=== PATIENT | female | born 1940 | race Caucasian/White ===

== ENCOUNTER 2018-05-17 06:14 | Inpatient (IN) | payer MEDICARE, BC, SELFPAY ==
[2018-04-30 08:14] VITALS: BMI 30.2
[2018-05-17] VITALS (18 sets, daily range): BP systolic 88–115; BP diastolic 37–69; PULSE 71–93; RESP 13–18; TEMP 36.3–37.1; O2SAT 92–98; BMI 30.2
--- NOTE | 2018-05-17 | DI.RAD.S_ITS ---
PROCEDURE: XR SHOULDER RT MIN 2V INDICATIONS: TOTAL RIGHT SHOULDER TECHNIQUE: Single view of the shoulder were acquired. COMPARISON: DOMINIC Murphy, SHOULDER RT MIN 2VW, 06/02/2016, 4:02 PM. FINDINGS: Bones: Patient is status post right shoulder arthroplasty. A surgical drain is present at the shoulder joint. Soft tissues: No suspicious soft tissue calcifications. Visualized portions of lung are unremarkable. IMPRESSION: Status post right shoulder arthroplasty. Dictated by: Italia Garza M.D. on 05/17/2018 at 11:04 Approved by: Italia Garza M.D. on 05/17/2018 at 11:05
[2018-05-17] MEDS: LACTATED RINGERS 1,000 ML 42 ML IV (06:50)
[2018-05-17] MEDS: VANCOMYCIN 1,000 MG/200 ML FROZ.PIGGY 200 MG IV ×2 (06:55→18:18)
--- NOTE | 2018-05-17 07:36 | PM.PREOP ---
Pre-operative Note Interval Note History & Physical reviewed/Exam performed by Physician: Yes Changes to H&P: No
[2018-05-17] MEDS: fentaNYL 100 MCG/2 ML INJ 50 MCG IV (07:40)
[2018-05-17] MEDS: MIDAZOLAM 2 MG/2 ML VIAL IV (07:40)
[2018-05-17] MEDS: GABAPENTIN 600 MG TABLET PO ×3 (07:47→20:54)
--- NOTE | 2018-05-17 07:51 | SUR.PREOP ---
Block start time [0740] . Monitoring initiated and maintained throughout procedure. Oxygen and medications given per anesthesiologist instructions. Patient remained stable throughout procedure, no adverse reactions noted. Block end time 0745[].
[2018-05-17] MEDS: GENTAMICIN 200 MG in SODIUM CHLORIDE 0.9% 100 ML 105 ML IV (08:00)
--- NOTE | 2018-05-17 08:36 | SUR.OPER ---
Beach chair with Skytron table shoulder positioner. Lower body on padded OR bed. Head in foam padded head cradle, secured with straps. Non-operative arm secured <90 degrees abduction with gel padding. Pillow under knees. Safety belt at thigh. Cloth tape over blanket over lower legs.
[2018-05-17] MEDS: LIDOCAINE 1% W/EPI INJ 20 ML INJ (08:44)
--- NOTE | 2018-05-17 10:11 | P.OP_ITS ---
Operative Date/Time/Diagnoses Date of procedure: 05/17/18 Time of procedure: 08:00 Pre-op diagnosis: Right shoulder end-stage arthritis Post-op diagnosis: same Procedure & Clinicians Procedure: R TSA Same procedure as scheduled: Yes Indications: Right shoulder end-stage arthritis Surgeon: Lenard Vera Optical Lab Technician: Kt Munguia Anesthesia Type: General and Peripheral nerve block Operative Notes Findings: Significant arthritis to the glenohumeral joint. Significant flattening of the humeral head with large osteophytes involving almost the entire head particularly medial and inferiorly. Some fraying to the rotator cuff but no sign of any full-thickness tears. Closure Type: primary Specimen(s): none sent Applied: drain(s) and implant(s) Estimated Blood Loss (mL): 50 Blood products transfused: none Procedure in detail: On date of service, Patient was met in the holding area. The operative site was signed and witnessed by the OR staff. The surgeries once again discussed with the patient and any remaining questions they had were answered fully. Patient was taken back to the operating theater and placed on the operating table in a supine position. Great care was taken to ensure that all bony prominences were properly padded. Patient was then placed into the beach chair position. The head and neck were properly positioned and secured. A timeout was performed verifying patient's name, procedure, and the operative site. The upper extremity was then prepped and draped in the normal sterile fashion. Previously, the bony anatomy and incision were marked out as well as injected with Marcaine with epinephrine. A deltopectoral approach was performed. 10 blade was used to incise the skin and fascial tissue. A deep knife was used to continue sharp dissection until the cephalic vein was visualized. The cephalic vein was dissected free allowing us to expose the deltopectoral interval. This interval was then developed. A Duncan elevator was used to free up the deltoid of any scarring both superficially as well as deeply. The vein and the deltoid were taken laterally while the pectoralis was taken medially. This gave us good visualization of the strap muscles. The clavipectoral fascia was removed and the strap muscles were then retracted medially with the pectoralis. This gave us stabilization of the subscapularis. The circumflex vessels were ligated and the subscapularis was sharply excised off the lesser tuberosity and then tagged. Once the subscapularis was released we're able to dislocate the shoulder. Patient had end-stage arthritic changes to the humeral head as well as the glenoid with large osteophytes anterior inferiorly as well as posteriorly. A Ronger was then used to remove the osteophytes. Next, cutting guide was placed and a saw was used to remove the humeral head. Once the head was removed it was templated. A starting awl was then used to find the canal and then the humerus was reamed and broached. Trial stem was placed and a variety of heads were trialed. A protector placed for the osteotomy was then placed and and we turned our attention back to the subscapularis as well as the glenoid. The subscapularis was freed up and a 360? fashion. The degenerative anterior and inferior capsular tissue was removed. This was followed by removing the degenerative labral tissue from around the glenoid as well as the biceps insertion. This gave us good visualization of the glenoid. Glenoid trials were used until we found the appropriate fit and curvature. Next the center hole was drilled followed by reaming of the glenoid. The wound was copiously irrigated after reaming. Next the pegs were drilled and a trial glenoid was impacted into place. Once we were satisfied with the preparation of the glenoid , the final component was cemented into place. This was followed by impaction. We Return to our attention back to the humerus. The protector plate was removed and heads were trialed once again and so we found the appropriate fit. The trials were removed and bone tunnels were made into the humeral neck. #2 FiberWire were passed through the bone tunnels for eventual subscapularis repair. The final stem and head were impacted into place and the shoulder was reduced. It was taken through range of motion and was felt to be stable in both posterior translation as well as external and internal rotation with abduction. The subscapularis was repaired back to the lesser tuberosity through the bone tunnels. This was then reinforced with soft tissue repair. Part of the rotator interval was then closed. A drain was placed and the rest of the wound was closed in a layered fashion. The shoulder was then cleaned dried and dressed and the patient was taken to the PACU in stable condition. Patient will follow our postoperative protocol for total shoulder arthroplasty. Complications: none Condition: stable Disposition: PACU Plan for aftercare: Patient will follow our postoperative protocol for a total shoulder arthroplasty.
[2018-05-17] MEDS: LACTATED RINGERS 1,000 ML 125 ML IV ×2 (11:00→20:52)
--- NOTE | 2018-05-17 12:31 | PC.NURSE ---
Patient received from PACU to room 221, oriented to room and call light. VSS, 3L NC at 96%, per online journalist unable to wean off at this point not tolerating room air. Patient denies complaints, denies pain or shortness of breath. Aquacel dressing and hemovac drain in place and intact. Able to move fingers, pulse palpable, reports numbness and effective pain management from regional block at this time. Call light placed within reach, bed alarm activated for safety.
--- NOTE | 2018-05-17 15:10 | PT.IIE ---
Current Diagnoses Primary osteoarthritis, right shoulder (05/17/18) Surgery Performed Operation Date: 05/17/18 07:45 Actual Procedures p Right Total Shoulder Arthroplasty(Right) - Lenard Vera MD Surgical History (Last Updated 04/30/18 @ 09:42 by Hilda Loera RN) H/O eye surgery (Acute) H/O hernia repair (Acute) H/O toe surgery (Acute) History of appendectomy (Acute) History of colonoscopy (Acute) History of inguinal hernia repair (Acute) History of laminectomy (Acute) History of lumbar fusion (Acute) History of tonsillectomy (Acute) History of total hip arthroplasty (Acute) History of total shoulder replacement (Acute) History of vaginal hysterectomy (Acute ~2005) S/P right knee arthroscopy (Acute) Status post total shoulder arthroplasty (Acute) Medical History (Last Updated 04/30/18 @ 09:47 by Hilda Loera, RN) Anxiety (Acute) Aortic valve sclerosis (Acute) Aortic valve stenosis (Acute) Arthritis of right shoulder region (Acute) Bilateral sciatica (Acute) Bruises easily (Acute) Cataract fragments in both eyes following surgery (Acute) Cervical spinal stenosis (Acute) Depression (Acute) Femoral fracture (Acute ~2013) Former smoker (Acute) GERD (gastroesophageal reflux disease) (Acute) Hammertoe (Acute ~2005) History of abnormal cervical Pap smear (Acute) History of anemia (Acute ~2003) History of delayed wound healing (Acute ~2013) Hyperlipidemia (Acute) Insomnia (Acute) LBBB (left bundle branch block) (Acute) Migraine headache (Acute) Murmur, cardiac (Acute) Numbness of left foot (Acute) Osteoarthritis (Acute) Postmenopausal (Acute) JUAN (stress urinary incontinence, female) (Acute) Scoliosis (Acute) Ulcer (Acute) Weakness (Acute) Physical Therapy Inpatient Evaluation/Re-Eval M1 PT/OT-IP Prior Functional Status Start: 05/17/18 13:00 Freq: NEEDED Status: Active Protocol: Document 05/17/18 15:10 DLM (Rec: 05/17/18 15:32 DLM [id number]) Medical Review Prior Functional Status Medical History Reviewed Yes Diet/Fluid Consistency Regular Communication WNL Mobility and Gait Independent with cane Activities of Daily Living and IADL's Independent Social History Household Members spouse Living Arrangements House Number of Floors (Floors) One Floor Number of Stairs To Enter/Railing? 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 Employment Status Retired Additional Social History Comment had left total shoulder surgery in past M2 PT-IP Current Condition Start: 05/17/18 13:00 Freq: NEEDED Status: Active Protocol: Document 05/17/18 15:10 DLM (Rec: 05/17/18 15:32 DL [id number]) Physical Therapy Current Condition Current Condition Evaluation Date 05/17/18 Treatment Diagnosis right total shoulder arthroplasty Onset Date 05/17/18 Precautions Shoulder Precautions Sling Other Precautions post-op exercises not listed in the chart at this time, pt reports she was told to do pendulums post-op, requested orders be written for exercises and ROM restrictions Weight Bearing Status Weight Bearing Status Non-Weight Bearing M3 PT-IP Subjective Start: 05/17/18 13:00 Freq: NEEDED Status: Active Protocol: Document 05/17/18 15:10 DLM (Rec: 05/17/18 15:32 DL [id number]) Subjective Physical Therapy Visit Type Type Initial Evaluation Visit Start Time 13:40 Visit Stop Time 14:16 Total Visit Minutes 36 Number of CHEMICAL ETCH OPERATOR Visits 0 Physical Therapy Visit Comments Patient Comments She can not feel her right arm Patient Goals Go home tomorrow, walk in [place] tomorrow Therapy Pain Assessment Pain When Pain Assessed During Mobility Pain Present Pain Present Denied Pain M4 PT-IP Mobility and Gait Start: 05/17/18 13:00 Freq: NEEDED Status: Active Protocol: Document 05/17/18 15:10 DLM (Rec: 05/17/18 15:32 [facility] [id number]) PT-Bed Mobility Assessment Rolling Type of Rolling Roll to Left Level of Assist Standby Assistance Supine to Sit Supine to Sit Standby Assistance Sit to Supine Sit to Supine Standby Assistance Scooting Scooting to Edge of Bed Independent PT-Transfer Assessment Sit to and From Stand Sit to and from Stand Contact Guard Assistance Equipment Transfer Assistive Device None Orthotic/Prosthetic Devices or Brace: Yes Transfers Transfer Destination Toilet Transfer Technique Stand Step Pivot Transfer Ability Level of Assist Minimal Assistance Comments Mobility Comments hand held assist used this visit due to decreased balance and hx of cane use Gait Assessment Gait Gait Assistance Required: Minimum Assistance Distance (Feet) 15 Able to Maintain Weight Bearing Status Yes During Gait Assistive Devices Assistive Device None Orthotic/Prosthetic Devices or Brace: Yes Factors Limiting Gait Function Factors Limiting Gait Function Poor Balance Comments Gait Comments she reports hx of decreased balance since leg sx Vitals in sittin/67 and HR 88 Vitals when back in supine 106 /68 and HR 82 Pt using 1 LPM of oxygen with sats 93%. No light-headedness reported when up. PT-Balance Assessment Sitting Balance and Reactions Static Sitting Balance Ability Normal Dynamic Sitting Balance Ability Normal Standing Balance and Reactions Static Standing Balance Ability Fair Dynamic Standing Balance Ability Fair M5 PT-IP Objective Assessments Start: 05/17/18 13:00 Freq: NEEDED Status: Active Protocol: Document 05/17/18 15:10 DLM (Rec: 05/17/18 15:32 DLM [id number]) Orientation Orientation/Cognition Level of Alertness Alert Orientation Name Age Birthday Month Date Year Day of Week Place Situation Language Function Ability No Deficits Noted Safety Awareness Understands Safety Issues Memory Description No Deficits Noted Gross Range of Motion Upper Extremity ROM Assessment Right Impaired Impairments post-op restrictions, pt moving right hand but reports numbness in UE, pt in sling Lower Extremity ROM Assessment Within Functional Limits Strength Upper Extremity Strength Assessment Right Impaired Shoulder post-op restrictions, no functional use right shoulder at this time Hand moving hand actively at this time Lower Extremity Strength Assessment Within Functional Limits Coordination Assessment Gross Coordination Gross Coordination WNL Sensation Assessment Sensation Gross Sensation Right UE Impaired Sensation Description Numbness Comments Sensation Comments post-op numbness with use of block M6 PT-IP Treatment Start: 05/17/18 13:00 Freq: NEEDED Status: Active Protocol: Document 05/17/18 15:10 DLM (Rec: 05/17/18 15:32 DL [id number]) Physical Therapy Treatment Education Education Provided Precautions Safety M7 PT-IP Assessment and Plan Start: 05/17/18 13:00 Freq: NEEDED Status: Active Protocol: Document 05/17/18 15:10 DLM (Rec: 05/17/18 15:32 DLM [id number]) PT Summary Assessment and Plan Potential Rehabilitation Potential Excellent Status of Condition at Evaluation Evolving Summary Impairments Pain ROM Strength Balance Bed Mobility Transfers Gait Activity Tolerance Goals Bed Mobility Goal Independent Transfer Goal Independent Cane Gait Goal Standby Assistance Cane Gait Distance 150 feet Other Goals up and down 5 steps with one rail and SBA (pt goes backwards at home to keep rail on left side) Days to Meet Goals 2 Frequency of Treatment Frequency Of Treatment Twice a Day Treatment Plan Physical Therapy Treatment Plan Bed Mobility Training Transfer Training Gait Training Therapeutic Exercise Post Op Education Discharge Planning Hot or Cold Pack Other Recommendations and Next Treatment wait for clarification on Focus exercises from surgeon Recommendations To Nursing Amount of Assist Needed 1 Person Assist Discharge Recommendations PT Discharge Recommendations Home with Assistance Outpatient PT
--- NOTE | 2018-05-17 16:41 | PC.NURSE ---
Addendum entered by Elise Cortez R.N. 05/17/18 21:28: Med for discomfort 07/22 at 2100 w/good relief. Dsg CDI. HV intact/patent 15cc. O2 @ 1.5L continues for SpO2 95%. Stable post op course. Call light w/in reach, bed alarm on for pt safety. Continue w/plan of care. Original Note: Pt visiting w/family. Denies any discomfort at this time. Right shoulder aquacell dsg CDI. Arm in sling. Lungs diminished at bases. SpO2 93% 1.5L O2 HV intact/patent. LR infusing into the left hand @ 125cc/hr via pump w/o incidence. Stable post op course. Call light w/in reach, bed alarm on for pt safety.
[2018-05-17] MEDS: DOCUSATE 100 MG CAPSULE PO (20:54)
[2018-05-17] MEDS: OXYCODONE IR 5 MG TABLET PO (21:00)
[2018-05-18 00:35] VITALS: BP 108/62; PULSE 75; RESP 18; TEMP 36.7; O2SAT 97
[2018-05-18] MEDS: OXYCODONE IR 5 MG TABLET PO ×3 (03:05→06:03)
[2018-05-18 03:50] VITALS: BP 103/50; PULSE 69; RESP 16; TEMP 36.5; O2SAT 98
[2018-05-18] MEDS: SODIUM CHLORIDE 0.9% FLUSH 10 ML IV ×2 (06:03→09:35)
[2018-05-18] MEDS: PANTOPRAZOLE 40 MG TABLET PO (06:04)
[2018-05-18 06:42] LABS: Hematocrit 29.5 % (36-46); Mean Corpuscular HGB Conc 33.7 % (30-36); Mean Corpuscular Hemoglobin 30.2 PG (26-34); Mean Corpuscular Volume 89.6 fL (80-100); Platelet Count 235 X10^3/uL (150-400); Red Blood Cell Count 3.29 X10^6/uL (4.0-5.2); Red Cell Distribution Width 14.3 % (11.6-14.8)
[2018-05-18 07:30] VITALS: BP 103/60; PULSE 64; RESP 14; TEMP 36.8; O2SAT 98
--- NOTE | 2018-05-18 07:30 | PM.DS.1 ---
History of Present Illness Date Patient Seen: 05/18/18 Time Patient Seen: 07:39 Chief complaint: right shoulder [id number] Narrative: Patient seen bedside s/p R. TSA POD #1. Patient is doing well, patient is controlled with oral pain medication. She is eating. She denies N/V as well as CP, SOB, or numbness/tingling in operative arm. She does have a little bit of postoperative hypotension but should resolve with a 500 cc bolus and holding her her medications this morning. It is likely secondary to anesthesia. Output in Hemovac drain is minimal. She would like to go home. Discharge Providers Date of admission: 05/17/18 06:14 Primary care physician: Arnulfo Oh MD Consults: 05/17/18 09:55 Consult to Discharge Planning Routine Comment: Consult to Physical Therapy Evaluate & Treat Comment: Physician Instructions: Evaluate and Treat Consult to Respiratory Therapy Evaluate & Treat Comment: Physician Instructions: Evaluate and treat Discharge provider: Shanika Guerra PA-C Discharge Date: 05/18/18 Summary Discharge Diagnosis: Right shoulder osteoarthritis Hospital Course: Patient was admitted to the hospital status post right total shoulder replacement on 05/17/[address] Vera. Patient tolerated the procedure well with no major complication she was transitioned to the acute care floor where she was placed on the standard total shoulder joint replacement pathway protocol. She was seen by PT who recommended that she be discharged home. Patient was stable ready for discharge on 05/18/2018. Status at Discharge Cognitive/behavioral status at discharge: Alert and oriented x4 Functional status at discharge: independent ambulation Overall status at discharge: patient is progressing back to baseline Time Spent with Patient Less than 30 minutes Exam Vital Signs (past 8 hours): - 05/18/18 00:35 05/18/18 03:50 Temperature 98.0 F 97.7 F Pulse Rate 75 69 Respiratory Rate 18 16 Blood Pressure 108/62 103/50 L Pulse Oximetry 97 98 Oxygen Delivery Method Room Air Oxygen Flow Rate 1 Narrative Exam Narrative: Well-developed well-nourished no acute distress. Alert and oriented x3. Dressing on right shoulder is clean dry and intact no signs of erythema or drainage. Mild generalized swelling around the shoulder. Range of motion of the wrist fingers and elbow are intact. She is neurovascularly intact to this upper extremity. Objective Labs Result Diagrams: 05/18/18 05:40 Labs: Laboratory Results - last 24 hr 05/18/18 05:40 WBC 8.0 RBC 3.29 L Hgb 10.0 L Hct 29.5 L MCV 89.6 MCH 30.2 MCHC 33.7 RDW 14.3 Plt Count 235 Discharge Plan Discharge Plan Patient Disposition: Home Discharge comment: d/c after PT and once BP is stable Discharge Med Rec/Prescriptions Prescriptions: New acetaminophen 325 mg Tablet 975 mg PO TID PRN (Reason: Headache) Qty: 0 RF: 0 docusate sodium 100 mg Capsule 100 mg PO BID Qty: 0 RF: 0 oxycodone 5 mg Tablet 5 mg PO Q4HR PRN (Reason: pain) Qty: 40 RF: 0 Continue atorvastatin [Lipitor] 20 MG tablet 20 mg PO QAM Qty: 0 RF: 0 potassium chloride 10 MEQ capsule, extended release 10 meq PO QAM Qty: 0 RF: 0 oxybutynin chloride 5 MG tablet 5 mg PO QAM Qty: 0 RF: 0 gabapentin [Neurontin] 600 MG tablet 600 mg PO TID Qty: 0 RF: 0 citalopram [Celexa] 40 mg Tablet 40 mg PO DAILY RF: 0 chlorthalidone 25 mg Tablet 25 mg PO DAILY RF: 0 lisinopril 30 mg Tablet 30 mg PO DAILY RF: 0 omeprazole 20 mg Capsule,Delayed Release(Dr/Ec) 40 mg PO DAILY RF: 0 Discontinued acetaminophen [Tylenol Extra Strength] 500 MG tablet 2 tab PO TID PRN (Reason: pain) Qty: 0 RF: 0 acetaminophen 325 MG tablet 650 mg PO Q4HP PRN (Reason: Pain) RF: 0 Follow up/Referrals: Lenard Vera MD [Physician] - (Follow up with Shanika Guerra PA-C on 05/31/18 at 3:00pm at the [facility] Arnulfo Oh MD [Primary Care Provider] - (follow up with your primary care provider ) Provider Discharge Instructions Diet: Diet as Tolerated Activity: No lifting operative arm, wear sling at all times. May remove sling for range of motion of wrist, elbow, and pendulum exercises Cold/Heat Therapy: Apply ice 20 minutes at a time to operative site at least hourly while awake Skin/Wound/Dressing Care Report to your healthcare provider any signs of infection, such as:: chills, fever, night sweats, increased pain, unusual drainage and unusual redness Dressing: Keep dressing clean, dry, and intact. May shower with dressing in place. Visit Report/Discharge Packet Instructions: DI for Shoulder Replacement Visit Report Forms: Stroke Signs & Symptoms Discharge Data Primary Care Provider: Arnulfo Oh Attending Provider: Lenard Vera Admit Date/Time: 05/17/18 06:14
[2018-05-18] MEDS: DOCUSATE 100 MG CAPSULE PO (09:33)
[2018-05-18] MEDS: OXYBUTYNIN 5 MG TABLET PO (09:33)
[2018-05-18] MEDS: GABAPENTIN 600 MG TABLET PO (09:33)
[2018-05-18] MEDS: POTASSIUM CHLORIDE 10 MEQ TAB PO (09:34)
[2018-05-18] MEDS: CITALOPRAM 20 MG TABLET 40 MG PO (09:34)
[2018-05-18 11:00] VITALS: BP 99/58; PULSE 74; RESP 14; TEMP 36.9; O2SAT 96
--- NOTE | 2018-05-18 11:15 | PC.NURSE ---
Pt BP 87/40s this morning, PA ordered for pt to have a 500cc bolus on NS. After complete pts BP 100s/50. She has been asymptomatic this whole time and denies any dizziness when getting up from the bed or ambulating. Pt will be discharged today and her hemovac will be taken out. Pt had a total of 20cc of bloody drainage out of drain.
--- NOTE | 2018-05-18 12:07 | PT.IPTN ---
Current Diagnoses Primary osteoarthritis, right shoulder (05/17/18) Surgery Performed Operation Date: 05/17/18 07:45 Actual Procedures p Right Total Shoulder Arthroplasty(Right) - Lenard Vera MD Physical Therapy Treatment Note M2 PT-IP Current Condition Start: 05/17/18 13:00 Freq: NEEDED Status: Active Protocol: Document 05/17/18 15:10 DLM (Rec: 05/17/18 15:32 DLM [id number]) Physical Therapy Current Condition Current Condition Evaluation Date 05/17/18 Treatment Diagnosis right total shoulder arthroplasty Onset Date 05/17/18 Precautions Shoulder Precautions Sling Other Precautions post-op exercises not listed in the chart at this time, pt reports she was told to do pendulums post-op, requested orders be written for exercises and ROM restrictions Weight Bearing Status Weight Bearing Status Non-Weight Bearing M3 PT-IP Subjective Start: 05/17/18 13:00 Freq: NEEDED Status: Active Protocol: Document 05/18/18 11:53 SA (Rec: 05/18/18 12:06 [id number]) Subjective Physical Therapy Visit Type Type Treatment Note Visit Start Time 10:02 Visit Stop Time 10:27 Total Visit Minutes 25 Number of COMPUTER TECHNOLOGY INSTRUCTOR Visits 1 Physical Therapy Visit Comments Patient Comments Pt reports feeling pretty good . Low BP of 89/52 but not symptomatic. Agreeable to get up and walk. Therapy Pain Assessment Pain When Pain Assessed During Mobility Pain Present Pain Present Pain Reported Location R shoulder Intensity 2 Scale Used Numeric (1 - 10) Pain Management Techniques Apply Cold Re-positioning Timing of Activity with Medications M4 PT-IP Mobility and Gait Start: 05/17/18 13:00 Freq: NEEDED Status: Active Protocol: Document 05/18/18 11:53 SA (Rec: 05/18/18 12:06 [id number]) PT-Bed Mobility Assessment Rolling Type of Rolling Roll to Left Level of Assist Standby Assistance Supine to Sit Supine to Sit Standby Assistance Sit to Supine Sit to Supine Standby Assistance Scooting Scooting to Edge of Bed Independent PT-Transfer Assessment Sit to and From Stand Sit to and from Stand Contact Guard Assistance Equipment Transfer Assistive Device None Orthotic/Prosthetic Devices or Brace: Yes Transfers Transfer Destination Bed Chair Transfer Technique Stand Step Pivot Transfer Ability Level of Assist Contact Guard Assistance Comments Mobility Comments Pt declined use of SPC as she usually uss it in RUE and prefered MEDICAL BILLING AND CODING INSTRUCTOR or using IV pole with mobility. Pt states her pain level is low and denies feeling light headed or dizzy. Gait Assessment Gait Gait Assistance Required: Contact Guard Assist Minimum Assistance Distance (Feet) 100 Able to Maintain Weight Bearing Status Yes During Gait Assistive Devices Assistive Device None Gait Belt Orthotic/Prosthetic Devices or Brace: Yes Gait Deviations General Gait Pattern Decreased Feet Clearance Flexed Trunk Factors Limiting Gait Function Factors Limiting Gait Function Decreased Activity Tolerance Decreased Strength Poor Balance Comments Gait Comments Gait training in halls with IV pole and CGA-Min A with cues for safety and pacing. Pt tends to walk quickly and needs cues for slowing down, PLB and overall safety. 02 sats with activity 87-91. Stair Climbing Assessment Comments Stair Climbing Comments Pt able to step up/down single step 5x with Min A/MEDICAL BILLING AND CODING INSTRUCTOR on L side as her will do at home, cues for safety and pacing. PT-Balance Assessment Sitting Balance and Reactions Static Sitting Balance Ability Normal Dynamic Sitting Balance Ability Normal Standing Balance and Reactions Static Standing Balance Ability Fair Dynamic Standing Balance Ability Fair M5 PT-IP Objective Assessments Start: 05/17/18 13:00 Freq: NEEDED Status: Active Protocol: Document 05/17/18 15:10 DLM (Rec: 05/17/18 15:32 DLM [id number]) Orientation Orientation/Cognition Level of Alertness Alert Orientation Name Age Birthday Month Date Year Day of Week Place Situation Language Function Ability No Deficits Noted Safety Awareness Understands Safety Issues Memory Description No Deficits Noted Gross Range of Motion Upper Extremity ROM Assessment Right Impaired Impairments post-op restrictions, pt moving right hand but reports numbness in UE, pt in sling Lower Extremity ROM Assessment Within Functional Limits Strength Upper Extremity Strength Assessment Right Impaired Shoulder post-op restrictions, no functional use right shoulder at this time Hand moving hand actively at this time Lower Extremity Strength Assessment Within Functional Limits Coordination Assessment Gross Coordination Gross Coordination WNL Sensation Assessment Sensation Gross Sensation Right UE Impaired Sensation Description Numbness Comments Sensation Comments post-op numbness with use of block M6 PT-IP Treatment Start: 05/17/18 13:00 Freq: NEEDED Status: Active Protocol: Document 05/18/18 11:53 SA (Rec: 05/18/18 12:06 SA [id number]) Physical Therapy Treatment Exercises Exercises Ankle Pumps Seated Knee Flexion/Extension Education Education Provided Precautions Safety M7 PT-IP Assessment and Plan Start: 05/17/18 13:00 Freq: NEEDED Status: Active Protocol: Document 05/18/18 11:53 SA (Rec: 05/18/18 12:06 SA [id number]) PT Summary Assessment and Plan Summary Assessment Summary Pt to d/c home with as caregiver and OP PT. Pt a bit impulsive and needs cues for safety. Frequency of Treatment Frequency Of Treatment Twice a Day Recommendations To Nursing Amount of Assist Needed 1 Person Assist Discharge Recommendations PT Discharge Recommendations Home with Assistance Outpatient PT
--- NOTE | 2018-05-18 15:27 | CM.IDA ---
Discharge Planning/Care Management CM Discharge Assessment Start: 05/18/18 15:18 Freq: Status: Discharge Protocol: Document 05/18/18 15:18 MAULIK (Rec: 05/18/18 15:26 MAULIK [id number]) Discharge Planning Assessment Assigned Sleeve Fixer RAFAEL Skaggs DPOA/Assigned Designee Name Felix Byrne, spouse Contact Information [phone] Advance Directives? Yes: Directive to physicians on file (dated 07/13/1994) Advance Directives on File Yes History Provided By Patient Prior Living Arrangements House Household Members spouse Type of transporation used prior to Drives own vehicle admit Independent with ADL's Yes: Indp w/cane Is patient alert and oriented? Yes Comment No DC needs. Met w/pt and her spouse at bedside, explained role. Pt eager to leave this morning, therapy team agrees pt will be safe to DC back home w/spouse and outpt PT when ordered. [facility]. Barriers to Discharge No Discharge Plan Home Transportation Arrangement Spouse Referrals Initiated None needed Whiteboard Updated in Patient Room with Yes name and ext. # of Sleeve Fixer Review Status In Process Check-in [id number]
== END 2018-05-18 12:40 | disposition home or self-care (01) | DRG 483 ==
PROVIDERS: Admitting Provider Orthopaedic Surgery; PCP Family Medicine; Visit Provider Orthopaedic Surgery
PROC: 0RQJ0ZZ Repair Right Shoulder Joint, Open Approach (ICD-10-PCS; CPT 23472; principal; 2018-05-17 07:45)
DX: M19.011 Primary osteoarthritis, right shoulder (principal); Z96.612 Presence of left artificial shoulder joint; E78.5 Hyperlipidemia, unspecified; K21.9 Gastro-esophageal reflux disease without esophagitis; F41.9 Anxiety disorder, unspecified; Z87.891 Personal history of nicotine dependence; I10 Essential (primary) hypertension; I44.7 Left bundle-branch block, unspecified; I95.9 Hypotension, unspecified
CPT/HCPCS: 36415; 64415; 73030; 85027; 94760; 97116; 97162; 97530; C1776; J1100; J2250; J2405; J2704; J3010; J3370

== ENCOUNTER → 2020-11-30 09:31 | Outpatient (CLI) | payer MEDICARE, BC, SELFPAY ==
[2018-05-17 11:37] VITALS: BMI 30.2
[2020-11-30 10:29] LABS: COVID19 -Nasal RAPID Negative (Negative)
== END ==
PROVIDERS: PCP Family Medicine; Visit Provider Student in an Organized Health Care Education/Training Program
DX: Z01.812 Encounter for preprocedural laboratory examination (principal); Z20.822 Contact with and (suspected) exposure to COVID-19
CPT/HCPCS: 87635; C9803

== ENCOUNTER 2020-12-02 07:31 | Day surgery (SDC) | payer MEDICARE, BC, SELFPAY ==
[2018-05-17 11:37] VITALS: BMI 30.2
[2020-11-26 07:30] VITALS: BMI 30.2
[2020-12-02] VITALS (14 sets, daily range): BP systolic 105–150; BP diastolic 53–81; PULSE 60–74; RESP 11–16; TEMP 36.1–36.8; O2SAT 89–99; BMI 34.4
--- NOTE | 2020-12-02 06:00 | DI.RAD.S_ITS ---
PROCEDURE: XR KNEE LT 1TO2V INDICATIONS: left TKA TECHNIQUE: 2 view(s) of the knee acquired. COMPARISON: None. FINDINGS: Bones: Patient is status post knee joint arthroplasty. Hardware components are in expected positions. Visualized bony structures are intact. Soft tissues: Overlying postoperative changes are noted. IMPRESSION: Postop changes from left total knee arthroplasty with anatomic left knee alignment. Dictated by: Chapito Daigle M.D. on 12/02/2020 at 11:09 Approved by: Chapito Daigle M.D. on 12/02/2020 at 11:09
[2020-12-02] MEDS: ACETAMINOPHEN 325 MG TABLET 975 MG PO (08:12)
[2020-12-02] MEDS: PREGABALIN 75 MG CAPSULE PO (08:12)
[2020-12-02] MEDS: CELECOXIB 200 MG CAPSULE PO (08:12)
[2020-12-02] MEDS: LACTATED RINGERS 1,000 ML 42 ML IV (08:15)
--- NOTE | 2020-12-02 08:46 | PM.PREOP ---
Pre-operative Note COVID-19 COVID-19 status: Negative Result date/Date tested (Pos, Neg/Pending): 11/30/20 Interval Note History & Physical reviewed/Exam performed by Physician: Yes Changes to H&P: No H&P completed within 30 days and has changed as indicated here:: Plan for L TKA
[2020-12-02] MEDS: TRANEXAMIC ACID 1,000 MG VIAL 2000 MG INJ ×2 (09:10→10:10)
--- NOTE | 2020-12-02 09:23 | SUR.OPER ---
Supine on padded OR bed. Pillow under head, arms secured on padded armboards <90 degree abduction. Safety belt across torso. Non-operative leg secured with tape over blanket over lower leg. Operative leg under control of surgeon with padded foam positioner. Foam padded brace at thigh of operative leg.
[2020-12-02] MEDS: KETOROLAC 30 MG/ML VIAL IV (09:34)
[2020-12-02] MEDS: CEFAZOLIN 1 GM VIAL 2 GM IV ×2 (09:34→17:11)
[2020-12-02] MEDS: MORPHINE 4 MG/ML INJ INJ (09:35)
[2020-12-02] MEDS: SODIUM CHLORIDE IRRIG SOLUTION 250 ML, POVIDONE-IODINE SPONGE STICKS 1 APPLIC IRR (09:35)
[2020-12-02] MEDS: ROPIVACAINE 0.5% PF 5 MG/ML 20ML VIAL 60 ML INJ (09:35)
--- NOTE | 2020-12-02 10:31 | P.OP_ITS ---
Operative Date/Time/Diagnoses Date of procedure: 12/02/20 Time of procedure: 10:31 Pre-op diagnosis: left knee OA Post-op diagnosis: same Procedure & Clinicians Procedure: Left total knee arthroplasty Same procedure as scheduled: Yes Indications: Left knee osteoarthritis resistant to further conservative measures Surgeon: Erik Vann Laborer Petroleum Refinery: Kt Munguia Anesthesia Type: General Operative Notes Findings: Left knee osteoarthritis with reactive synovitis. Large osteophytes. Closure Type: primary Specimen(s): none sent Prosthetic devices, grafts, tissues, transplants, or devices: Sandoval and nephew Journey 2 CR Oxinium femoral component size 5, left Journey size 4, left tibial base plate 29 mm oval Nelia 2 patellar button Size 3-4, left 10 mm thick Journey 2 deep dish polyethylene Estimated Blood Loss (mL): 50 Tourniquet time (min): 40 Procedure in detail: Patient was met in the preoperative holding area where the site and side of surgery marked by . Informed consent had been reviewed and signed in clinic but was also reviewed in the preoperative holding area and all last minute questions were answered. Patient was then brought back in the operating room where she was transferred on to the operating room table and induced under general anesthesia. A nonsterile tourniquet was then placed on the left thigh and the left lower extremity was then prepped and draped normal sterile fashion. A surgical time-out was performed verifying the site and side of surgery as well as the the patient. A Esmarch was then used to exsanguinate the left lower extremity the tourniquet was inflated 250 mmHg. A longitudinal incision was made in the skin with a 10. Blade a new 10. Blade was then used to elevate medial lateral flaps. The medial parapatellar arthrotomy was then marked and cut with a 10. Blade. The patella was then everted office fat pad was removed and a medial peel of the MCL was then performed which was minimal in nature she has overall valgus alignment of the extremity this point large amount of reactive synovitis was encountered this was removed using electrocautery. Osteophytes about the femur and patella were also removed. Remnant of the ACL was removed and the lateral meniscus was removed. Whitesides line was then marked using electrocautery as well as the entry site for the femoral drill and the tibial drill respective drill was then used to enter the femoral and tibial canals. Intramedullary adriana was then placed inside the femur and a distal femoral cutting jig was then placed. This was pinned in the neutral slot. This was then backed off 2 mm to take 2 extra mm of the distal femoral cut. Next the adriana was removed from the femur placed inside the tibia the out course instructor was then used to pin the jig into place varus valgus alignment was confirmed with a drop adriana. It was then pinned into place tibial cut was then made with the oscillating saw. Tibial cut was then removed as well as the remnant of the medial meniscus. The knee was then brought into full extension and 9 mm extension block fit well. There was no excess laxity in varus valgus. The knee was then brought into flexion the gap group leader semiconductor testing was then used and the rotation was then marked and drilled. The gap group leader semiconductor testing was then removed and the Sizer was placed sized to a size 5. The 5 in 1 cutting block for the size 5 femur was then malleted into place and pinned. Five cuts were then made sequentially. The jig was then removed and the trial femoral component was malleted into place and the condylar cut was then made. A size 4 tibial base plate with a 9 mm thick CR was then placed this was noted to be a little bit loose in flexion extension we then upsized to a 10 mm thick polyethylene which had good stability in full extension throughout mid flexion flexion range of motion. The patella was then freehand cut sized to 29 mm patellar button this was then drilled and a patellar button trial was then placed knee was brought through range of motion with good patellar tracking. Tibial base plate rotation was marked using a floating technique. Trial components were then removed periarticular anesthetic injection was then performed throughout the knee including the posterior aspect of the knee. The tibia base plate was then replaced and pinned into place and drilled and punched for the keel. Bony fragments were then placed inside the tibial canal as well as the femoral drill hole. Pulse lavage was then used to clean the cut surface of the femur tibia and patella. Cement was then mixed. The tibia was then thoroughly dried and cement was then finger packed into the keel hole as well as the cut surface of the tibia is some was placed on the undersurface of the tibial base plate malleted into place. All excess cement was removed. Stent was then placed onto the cut surface of the femur with exception of the posterior condylar cut cement was placed on the feet of the femoral component malleted into place all excess cement was removed. A size 10 mm thick CR polyethylene trial was then placed the knee was brought into full extension ankle was internally rotated cement was then finger packed onto the cut surface of the patella as well as between the patellar pegs on the button. This was then clamped into place excess cement was removed. Tourniquet was let down at 40 minutes Betadine solution was then placed in the wound and the knee was held in full extension with the ankle internally rotated until cement was fully cured once this was done pulse lavage normal saline was used to thoroughly irrigate the knee hemostasis was achieved using electrocautery. PCL was fairly tight in full flexion which was limiting range of motion I then pie crust the PCL which improved her kinematics. The trial polyethylene was then removed because I pie crust the PCL I elected to proceed with a 10 mm thick deep dish polyethylene this was then placed make sure the medial lateral locking mechanisms were well engaged. The medial parapatellar arthrotomy was then closed using 1. Vicryl interrupted fashion followed by a running Quill suture followed by 2 Vicryl interrupted fashion the subcutaneous layer followed by running 3-0 Stratafix in a subcuti cular layer followed by Dermabond and Aquacel dressing. Complications: none Post-operative Condition: stable Disposition: PACU Plan for aftercare: 24 hours postop antibiotics, ASA 81 mg b.i.d. for 6 weeks for DVT prophylaxis, weight-bearing as tolerated left lower extremity.
--- NOTE | 2020-12-02 10:56 | SUR.PHASEI ---
Received to PACU after general anesthesia. Oral airway in place, removed on arrival without incident. No airway assitance required. Report received from RYAN Collins and Dr Flood.
[2020-12-02] MEDS: OXYCODONE IR 5 MG TABLET PO ×2 (11:03→14:31)
--- NOTE | 2020-12-02 11:27 | SUR.PHASEI ---
Pt transferred to room 222 with belongings bag. Received in room by RYAN Cesar. VSS. Dressing remains D/I.
[2020-12-02] MEDS: LACTATED RINGERS 1,000 ML 100 ML IV ×2 (12:27→22:02)
[2020-12-02] MEDS: IBUPROFEN 400 MG TABLET PO ×3 (14:34→20:58)
[2020-12-02] MEDS: ACETAMINOPHEN 325 MG TABLET 650 MG PO ×2 (14:36→20:58)
--- NOTE | 2020-12-02 15:29 | PC.NURSE ---
Pt received from PACU at 1125, lethargic but easily awakened. Pt A&OX3, dressing to L knee C/D/I. Pt 02 sat drop while sleeping and placed on 1 LNC while sleeping. Pt tolerating jello, and crackers,diet gradually advanced this afternoon. LS CTA, RT at bedside insturcting IS use. PT reports pain 7 /10 with movement, medcated with good effect tylenol, ibuprofen and oxycodone to 4/10 pain with movement. NAD. Continuous monitoring. Awaiting patient to void. LR at 100ml/hr.
--- NOTE | 2020-12-02 16:25 | PT.IIE ---
Current Diagnoses Unilateral primary osteoarthritis, left knee (12/02/20) Surgery Performed Operation Date: 12/02/20 08:45 Actual Procedures p Total Knee Arthroplasty(Left) - Erik Vann MD Medical History (This Medical Record has been edited. Action required.) Anesthesia Anxiety Aortic valve sclerosis Aortic valve stenosis Arthritis of right shoulder region Bilateral sciatica Bruises easily Cataract fragments in both eyes following surgery Cervical spinal stenosis Depression Femoral fracture (~2013) Former smoker GERD (gastroesophageal reflux disease) Hammertoe (~2005) History of abnormal cervical Pap smear History of anemia (~2003) History of delayed wound healing (~2013) HTN (hypertension) Hyperlipidemia Insomnia LBBB (left bundle branch block) Migraine headache Murmur, cardiac Numbness of left foot Osteoarthritis Postmenopausal Scoliosis JUAN (stress urinary incontinence, female) Ulcer Weakness Physical Therapy Inpatient Evaluation/Re-Eval M1 PT/OT-IP Prior Functional Status Start: 12/02/20 18:06 Freq: NEEDED Status: Active Protocol: Document 12/02/20 16:25 AB (Rec: 12/02/20 18:19 AB [id number]) Medical Review Prior Functional Status Medical History Reviewed Yes Communication able to make needs known Mobility and Gait pt stated that she is modified independent with all mobilities and ambulation using 4WW on first level of the house and uses a FWW on 2nd level/bedroom level. uses a SPC for outdoor mobility but stated that she does not go out of the house much Social History Household Members spouse Living Arrangements House Number of Floors (Floors) Two Floors Number of Stairs To Enter/Railing? 4 steps L rail to enter 15 steps L rail to bedroom level Home Environment High Toilet,Walk in Shower Home Equipment Front Wheel Walker,Four Wheel Walker,Straight Cane,Grab Bars In Shower M2 PT-IP Current Condition Start: 12/02/20 18:06 Freq: NEEDED Status: Active Protocol: Document 12/02/20 16:25 AB (Rec: 12/02/20 18:19 AB [id number]) Physical Therapy Current Condition Current Condition Evaluation Date 12/02/20 Treatment Diagnosis s/p L TKA; difficulty in walking Onset Date 12/02/20 Weight Bearing Status Weight Bearing Status Weight Bear as Tolerated Allowed Weight Bearing Amount (enter % LLE WBAT or #) (%) M3 PT-IP Subjective Start: 12/02/20 18:06 Freq: NEEDED Status: Active Protocol: Document 12/02/20 16:25 AB (Rec: 12/02/20 18:19 AB [id number]) Subjective Physical Therapy Visit Type Type Initial Evaluation Visit Start Time 16:25 Visit Stop Time 17:20 Total Visit Minutes 55 Number of BEE TENDER Visits 0 Physical Therapy Visit Comments Patient Comments agreeable to do PT Therapy Pain Assessment Pain When Pain Assessed At Rest Pain Present Pain Present Pain Reported Location Left Hip Intensity 5 Scale Used Numeric (0 - 10) Pain Management Techniques Apply Cold,Distraction, Modification of Treatment,Re- positioning,Timing of Activity with Medications M4 PT-IP Mobility and Gait Start: 12/02/20 18:06 Freq: NEEDED Status: Active Protocol: Document 12/02/20 16:25 AB (Rec: 12/02/20 18:19 AB [id number]) PT-Bed Mobility Assessment Supine to Sit Supine to Sit Standby Assistance PT-Transfer Assessment Sit to and From Stand Sit to and from Stand Moderate Assistance,1 Person Assistance,Use of Upper Extremities Equipment Transfer Assistive Device Gait Belt,Front Wheeled Walker Orthotic/Prosthetic Devices or Brace: No Transfers Transfer Destination Bedside Commode Transfer Technique Stand Step Pivot Transfer Ability Level of Assist Moderate Assistance,1 Person Assistance,Use of Upper Extremities Comments Mobility Comments completed supine to sit SBA. pt was able to sit on EOB SBA . completed sit to stand mod A and step transfer to bedside commode using FWW mod A and cues. pt completed sit to stand from bedside commode mod A and was able to maintain standing min A while assisted with hygiene care and brief management. pt with increase posterior LOB. pt ambulated in room ~ 15 ft mod A using fWW and cues for steadiness and L quads activation. presents with increase forward flexion and tends to have FWW too far from her. cued for upright posture and positioning. agreed to stay up on the chair. positioned on the chair. call light and table placed within reach. informed pt regarding caregiver training and set up for 10 am tomorrow with spouse . pt stated that she will call her to inform. Gait Assessment Gait Gait Assistance Required: Moderate Assistance,1 Person Assist Distance (Feet) 15 Able to Maintain Weight Bearing Status Yes During Gait Assistive Devices Assistive Device Gait Belt,Front Wheeled Walker Orthotic/Prosthetic Devices or Brace: No Gait Deviations General Gait Pattern Antalgic,Flexed Trunk,Step-to Gait Factors Limiting Gait Function Factors Limiting Gait Function Decreased Activity Tolerance, Decreased Strength,Limited Range of Motion,Pain,Poor Balance,Poor Safety Awareness Comments Gait Comments pls refer to mobility section for details PT-Balance Assessment Sitting Balance and Reactions Static Sitting Balance Ability Good Dynamic Sitting Balance Ability Good Standing Balance and Reactions Static Standing Balance Ability Fair Dynamic Standing Balance Ability Poor Device Used FWW M5 PT-IP Objective Assessments Start: 12/02/20 18:06 Freq: NEEDED Status: Active Protocol: Document 12/02/20 16:25 AB (Rec: 12/02/20 18:19 AB [id number]) Orientation Orientation/Cognition Level of Alertness Alert Orientation Name Language Function Ability No Deficits Noted Safety Awareness Decreased Safety Awareness Gross Range of Motion Lower Extremity ROM Assessment Within Functional Limits Strength Lower Extremity Strength Assessment Left Impaired Hip 4-/5 Knee 3+/5 Coordination Assessment Gross Coordination Gross Coordination WNL Sensation Assessment Sensation Gross Sensation WNL Muscle Tone Muscle Tone WNL Yes M6 PT-IP Treatment Start: 12/02/20 18:06 Freq: NEEDED Status: Active Protocol: Document 12/02/20 16:25 AB (Rec: 12/02/20 18:19 AB [id number]) Physical Therapy Treatment Exercises Exercises Heel Slides Education Education Provided Precautions,Weight Bearing Status,Post-Op Packet,Safety M7 PT-IP Assessment and Plan Start: 12/02/20 18:06 Freq: NEEDED Status: Active Protocol: Document 12/02/20 16:25 AB (Rec: 12/02/20 18:19 AB [id number]) PT Summary Assessment and Plan Potential Rehabilitation Potential Good Status of Condition at Evaluation Evolving Summary Impairments Pain,ROM,Strength,Balance, Coordination,Sensation,Tone, Cognition,Bed Mobility, Transfers,Gait,Activity Tolerance Assessment Summary pt requiring mod A with ambulation using FWW. caregiver training set up for tomorrow at ~ 10 am. will continue to assess progress for safe d/c home. pt plans to go home and spouse to assist her. pt stated that she has outpt PT set up already. Goals Bed Mobility Goal Standby Assistance Transfer Goal Standby Assistance,Front Wheeled Walker Gait Goal Standby Assistance,Front Wheel Walker Gait Distance 150 Other Goals up/down 15 steps L rail ascending CGA Days to Meet Goals 5 Frequency of Treatment Frequency Of Treatment Twice a Day Treatment Plan Physical Therapy Treatment Plan Bed Mobility Training,Transfer Training,Gait Training, Therapeutic Exercise,Balance Retraining,Post Op Education, Discharge Planning,Hot or Cold Pack,Neuromuscular Re-ed, Coordination Retraining,Manual Therapy Other Recommendations and Next Treatment caregiver training 12/03/20 Focus @ 10 am Precautions Other Precautions LLE WBAT Recommendations To Nursing Amount of Assist Needed 1 Person Assist Discharge Recommendations PT Discharge Recommendations Home with 05/12 Assist Available,Outpatient PT Transportation Needs at Discharge Private Vehicle
[2020-12-02] MEDS: ASPIRIN EC 81 MG TABLET PO (20:58)
[2020-12-02] MEDS: GABAPENTIN 300 MG CAPSULE PO (20:58)
[2020-12-03] MEDS: OXYCODONE IR 5 MG TABLET PO ×4 (00:49→11:12)
[2020-12-03] MEDS: IBUPROFEN 400 MG TABLET PO ×3 (00:50→09:02)
[2020-12-03] MEDS: CEFAZOLIN 1 GM VIAL 2 GM IV (00:50)
[2020-12-03 05:00] VITALS: BP 107/68; PULSE 74; RESP 16; TEMP 36.4; O2SAT 97
[2020-12-03 06:15] LABS: Hematocrit 28.2 % (36-46); Hemoglobin 9.3 g/dL (12.0-16.0)
--- NOTE | 2020-12-03 06:27 | PC.NURSE ---
Patient placed on 1L NC d/t desat during sleep. Pt's SPO2 remains at 92-94% on 1L, will maintain until next shift monitors otherwise. Patient borderline hypotensive during night (105/60, 107/68) and was noted to have a low rate of oral intake. This RN encouraged pt to increase oral intake but kept IVF running. Will continue to monitor.
[2020-12-03 07:48] VITALS: BP 140/70; PULSE 76; RESP 16; TEMP 36.8; O2SAT 96
[2020-12-03] MEDS: ATORVASTATIN 20 MG TABLET PO (09:01)
[2020-12-03] MEDS: ACETAMINOPHEN 325 MG TABLET 650 MG PO (09:01)
[2020-12-03] MEDS: ASPIRIN EC 81 MG TABLET PO (09:01)
[2020-12-03] MEDS: CITALOPRAM 10 MG TABLET 20 MG PO (09:01)
[2020-12-03] MEDS: OXYBUTYNIN 5 MG TABLET PO (09:01)
[2020-12-03 09:02] VITALS: BP 140/76; PULSE 73
[2020-12-03] MEDS: DOCUSATE 100 MG CAPSULE PO (09:02)
[2020-12-03] MEDS: GABAPENTIN 300 MG CAPSULE PO (09:02)
[2020-12-03] MEDS: lisinopriL 10 MG TABLET 30 MG PO (09:02)
--- NOTE | 2020-12-03 09:03 | P.DS_ITS ---
History of Present Illness History of Present Illness Date Patient Seen: 12/03/20 Time Patient Seen: 09:03 Chief complaint: OPB Narrative: Patient states her pain is mild. Denies fever or chills. No nausea vomiting. Patient does have a caregiver at home. Discharge Providers Provider Discharge Date: 12/03/20 Primary care physician: Arnulfo Oh MD Consults: 12/02/20 06:00 Consult to Anesthesiology Routine Comment: Consulting Provider: Anesthesiologist Reason for consultation: Regional block for post operative pain control 12/02/20 12:07 Consult to Discharge Planning Routine Comment: Consult to Physical Therapy Evaluate & Treat Comment: Physician Instructions: postop TKA protocol Consult to Respiratory Therapy Evaluate & Treat Comment: Physician Instructions: Evaluate and treat Discharge provider: Kt Munguia PA-C Summary Hospital Course Discharge Diagnosis: Left knee osteoarthritis Hospital Course: Left total knee arthroplasty Same procedure as scheduled: Yes Indications: Left knee osteoarthritis resistant to further conservative measures Surgeon: Erik Vann Head Bookkeeper: Kt Munguia Anesthesia Type: General Operative Notes Findings: Left knee osteoarthritis with reactive synovitis. Large osteophytes. Closure Type: primary Specimen(s): none sent Prosthetic devices, grafts, tissues, transplants, or devices: Sandoval and nephew Journey 2 CR Oxinium femoral component size 5, left Journey size 4, left tibial base plate 29 mm oval Nelia 2 patellar button Size 3-4, left 10 mm thick Journey 2 deep dish polyethylene Estimated Blood Loss (mL): 50 Tourniquet time (min): 40 Patient admitted to the hospital for left total knee arthroplasty. Patient consented to the same. Patient had left total knee arthroplasty on December 02, 2020. Patient back in her room recovering well as in stable condition. Discharge home today in stable condition. Status at Discharge Cognitive/behavioral status at discharge: at baseline, oriented Functional status at discharge: uses cane/walker Overall status at discharge: patient is progressing back to baseline Exam Vital Signs (past 8 hours): - 12/03/20 05:00 Temperature 97.5 F L Pulse Rate 74 Respiratory Rate 16 Blood Pressure 107/68 Pulse Oximetry 97 Oxygen Delivery Method Nasal Cannula Oxygen Flow Rate 2 Narrative Exam Narrative: 80-year-old female resting comfortably in no apparent distress. Dressing is Clean, dry, intact.. Neurovascular status is intact bilateral lower extremities. Objective Labs Result Diagrams: 12/03/20 05:37 Labs: Laboratory Results - last 24 hr 12/03/20 05:37 Hgb 9.3 L Hct 28.2 L PFSH Medical History (Updated 11/26/20 @ 07:39 by Lelia Cramer RN) Anesthesia Anxiety Aortic valve sclerosis Aortic valve stenosis Arthritis of right shoulder region Bilateral sciatica Bruises easily Cataract fragments in both eyes following surgery Cervical spinal stenosis Depression Femoral fracture (~2013) Former smoker GERD (gastroesophageal reflux disease) Hammertoe (~2005) History of abnormal cervical Pap smear History of anemia (~2003) History of delayed wound healing (~2013) HTN (hypertension) Hyperlipidemia Insomnia LBBB (left bundle branch block) Migraine headache Murmur, cardiac Numbness of left foot Osteoarthritis Postmenopausal Scoliosis JUAN (stress urinary incontinence, female) Ulcer Weakness Surgical History (Updated 11/26/20 @ 07:37 by Lelia Cramer RN) H/O eye surgery H/O hernia repair H/O toe surgery History of appendectomy History of arthroplasty of right shoulder (05/17/18) History of colonoscopy History of inguinal hernia repair History of laminectomy History of lumbar fusion History of tonsillectomy History of total hip arthroplasty History of total shoulder replacement History of vaginal hysterectomy (~2005) S/P right knee arthroscopy Status post total shoulder arthroplasty Social History (System 11/24/20 @ 08:53 by Lady Irma Junior) household members: spouse Smoking Status: Former smoker alcohol intake: current Discharge Assessment & Plan Assessment and Plan Assessment: Patient progressing as expected status post left knee arthroplasty Plan of Treatment: Discharge home today in stable condition. Discharge Plan Discharge Plan Patient Disposition: Home Discharge orders & Medications Discharge Orders: Discharge (Order); Ordered 12/03/20 Ordered By: Kt Munguia Prescriptions: New acetaminophen 325 mg Tablet 650 mg PO TID Qty: 60 RF: 0 aspirin 81 mg Tablet,Delayed Release (Dr/Ec) 81 mg PO BID Qty: 60 RF: 0 ibuprofen 400 mg Tablet 400 mg PO Q4HR Qty: 60 RF: 0 oxycodone 5 mg Tablet 5 mg PO Q3HR PRN (Reason: Pain, Moderate (4-6)) Qty: 60 RF: 0 polyethylene glycol 3350 17 gram Powder In Packet 17 gm PO DAILY PRN (Reason: Constipation) Qty: 15 RF: 0 Continued atorvastatin [Lipitor] 20 MG tablet 20 mg PO QAM Qty: 0 RF: 0 oxybutynin chloride 5 MG tablet 5 mg PO QAM Qty: 0 RF: 0 gabapentin [Neurontin] 600 MG tablet 300 mg PO BID Qty: 0 RF: 0 citalopram [Celexa] 40 mg Tablet 20 mg PO DAILY RF: 0 chlorthalidone 25 mg Tablet 25 mg PO DAILY RF: 0 lisinopril 30 mg Tablet 30 mg PO DAILY RF: 0 omeprazole 20 mg Capsule,Delayed Release(Dr/Ec) 40 mg PO DAILY RF: 0 Discontinued acetaminophen 325 mg tablet 650 mg PO BID PRN (Reason: Pain) RF: 0 Follow up/Referrals: Erik Vann MD [Physician] - (2 weeks) Arnulfo Oh MD [Primary Care Provider] - Diet/Activity/Treatments Diet: Diet as Tolerated Activity: Weight-bearing as tolerated Cold/Heat Therapy: Ice as needed Skin/Wound/Dressing Care Report to your healthcare provider any signs of infection, such as:: chills, fever, increased pain, unusual drainage and unusual redness Dressing: Keep clean and dry Visit Report/Discharge Packet Instructions: DI for Knee Replacement Stand Alone Forms: Surgery Discharge Discharge Data Primary Care Provider: Arnulfo Oh Attending Provider: Erik Vann Quality VTE Deep Vein Thrombosis/Pulmonary Embolism Present on Admission: No
[2020-12-03] MEDS: CHLORTHALIDONE 25 MG TABLET PO (09:08)
[2020-12-03] MEDS: PANTOPRAZOLE DR 40 MG TABLET PO (09:50)
--- NOTE | 2020-12-03 10:52 | PT.IPTN ---
Current Diagnoses Unilateral primary osteoarthritis, left knee (12/02/20) Surgery Performed Operation Date: 12/02/20 08:45 Actual Procedures p Total Knee Arthroplasty(Left) - Erik Vann MD Physical Therapy Treatment Note M2 PT-IP Current Condition Start: 12/02/20 18:06 Freq: NEEDED Status: Discharge Protocol: Document 12/02/20 16:25 AB (Rec: 12/02/20 18:19 AB [id number]) Physical Therapy Current Condition Current Condition Evaluation Date 12/02/20 Treatment Diagnosis s/p L TKA; difficulty in walking Onset Date 12/02/20 Weight Bearing Status Weight Bearing Status Weight Bear as Tolerated Allowed Weight Bearing Amount (enter % LLE WBAT or #) (%) M3 PT-IP Subjective Start: 12/02/20 18:06 Freq: NEEDED Status: Discharge Protocol: Document 12/03/20 10:14 CLB (Rec: 12/03/20 14:07 CLB [id number]) Subjective Physical Therapy Visit Type Type Treatment Note Visit Start Time 10:14 Visit Stop Time 10:52 Total Visit Minutes 38 Notes present Number of HYDRATION PLANT OPERATOR Visits 1 Physical Therapy Visit Comments Patient Comments agreeable to do PT Therapy Pain Assessment Pain When Pain Assessed At Rest Pain Present Pain Present Denied Pain M4 PT-IP Mobility and Gait Start: 12/02/20 18:06 Freq: NEEDED Status: Discharge Protocol: Document 12/03/20 10:14 CLB (Rec: 12/03/20 14:07 CLB [id number]) PT-Bed Mobility Assessment Supine to Sit Supine to Sit Standby Assistance PT-Transfer Assessment Sit to and From Stand Sit to and from Stand Standby Assistance,1 Person Assistance,Use of Upper Extremities Equipment Transfer Assistive Device Gait Belt,Front Wheeled Walker Orthotic/Prosthetic Devices or Brace: No Transfers Transfer Destination Bed,Chair Transfer Technique Stand Step Pivot Transfer Ability Level of Assist Standby Assistance,1 Person Assistance,Use of Upper Extremities Comments Mobility Comments Pt is SBA for [id number] and transfer to WC. Pt able to climb stair stairs first with HYDRATION PLANT OPERATOR providing CGA, then providing CGA. Pt returned to room sitting in chair for seated HS then returned to bed for ther ex. Left pt in bed with alarm on, all need within reach and present. Gait Assessment Gait Gait Assistance Required: Standby Assistance,1 Person Assist Distance (Feet) 50 Able to Maintain Weight Bearing Status Yes During Gait Assistive Devices Assistive Device Gait Belt,Front Wheeled Walker Orthotic/Prosthetic Devices or Brace: No Gait Deviations General Gait Pattern Antalgic,Flexed Trunk,Step-to Gait Factors Limiting Gait Function Factors Limiting Gait Function Decreased Activity Tolerance, Decreased Strength,Limited Range of Motion,Pain,Poor Balance,Poor Safety Awareness Comments Gait Comments Pt ambulated ~50ft w/FWW/SBA with step to gait pattern. Stair Climbing Assessment Evaluation Level of Assist On Stairs Contact Guard Assistance,1 Person Assistance Devices Stair Climbing Assistive Devices Left Railing Technique/Endurance Stair Climbing Direction Ascend and Descend Stair Climbing Technique Step to Step Number of Steps Climbed 3 Stair Climbing Set # Repetitions (reps) 5 Comments Stair Climbing Comments Pt climbs step to step up stairs and after trial pt best to climb backwards down steps with providing CGA as this is how pt has been descending stairs. Pt unsafe going down sideways. PT-Balance Assessment Sitting Balance and Reactions Static Sitting Balance Ability Good Dynamic Sitting Balance Ability Good Standing Balance and Reactions Static Standing Balance Ability Fair Dynamic Standing Balance Ability Poor Device Used FWW M5 PT-IP Objective Assessments Start: 12/02/20 18:06 Freq: NEEDED Status: Discharge Protocol: Document 12/02/20 16:25 AB (Rec: 12/02/20 18:19 AB [id number]) Orientation Orientation/Cognition Level of Alertness Alert Orientation Name Language Function Ability No Deficits Noted Safety Awareness Decreased Safety Awareness Gross Range of Motion Lower Extremity ROM Assessment Within Functional Limits Strength Lower Extremity Strength Assessment Left Impaired Hip 4-/5 Knee 3+/5 Coordination Assessment Gross Coordination Gross Coordination WNL Sensation Assessment Sensation Gross Sensation WNL Muscle Tone Muscle Tone WNL Yes M6 PT-IP Treatment Start: 12/02/20 18:06 Freq: NEEDED Status: Discharge Protocol: Document 12/03/20 10:14 CLB (Rec: 12/03/20 14:07 CLB [id number]) Physical Therapy Treatment Exercises Exercises Ankle Pumps,Quad Sets,Heel Slides,Straight Leg Raises, Short Arc Quads Education Education Provided Precautions,Weight Bearing Status,Post-Op Packet,Safety M7 PT-IP Assessment and Plan Start: 12/02/20 18:06 Freq: NEEDED Status: Discharge Protocol: Document 12/03/20 10:14 CLB (Rec: 12/03/20 14:07 CLB [id number]) PT Summary Assessment and Plan Potential Rehabilitation Potential Good Status of Condition at Evaluation Evolving Summary Impairments Pain,ROM,Strength,Balance, Coordination,Sensation,Tone, Cognition,Bed Mobility, Transfers,Gait,Activity Tolerance Assessment Summary Pt requiring SBA for all mobility and CGA for stair climbing. Pt able to assist pt safely and able to cues pt appropriately during mobility. Goals Bed Mobility Goal Standby Assistance Transfer Goal Standby Assistance,Front Wheeled Walker Gait Goal Standby Assistance,Front Wheel Walker Gait Distance 150 Other Goals up/down 15 steps L rail ascending CGA Days to Meet Goals 5 Frequency of Treatment Frequency Of Treatment Twice a Day Treatment Plan Physical Therapy Treatment Plan Bed Mobility Training,Transfer Training,Gait Training, Therapeutic Exercise,Balance Retraining,Post Op Education, Discharge Planning,Hot or Cold Pack,Neuromuscular Re-ed, Coordination Retraining,Manual Therapy Precautions Other Precautions LLE WBAT Recommendations To Nursing Amount of Assist Needed 1 Person Assist Discharge Recommendations PT Discharge Recommendations Home with 05/12 Assist Available,Outpatient PT Transportation Needs at Discharge Private Vehicle
--- NOTE | 2020-12-03 11:11 | PC.NURSE ---
Discharge note: Patient cleared by PT, caregiver training done, discharged home as ordered. Discharge instructions given to both patient and spouse, discussed importance of F/U with Ortho in two weeks as scheduled in pre-op, new medications, mobility precautions, dressing care, and s/sx of infection. Both patient and spouse verbalized understanding of instructions. Home via private vehicle, accompanied by spouse.
--- NOTE | 2020-12-03 11:32 | PC.NURSE ---
pt received lying in bed, A&Ox3. Getting up to BSC and to bathroom, voiding this shift without difficulty. Good po intake. LS CTA, abdomen SNT, she reports passing gas +BS x4. VSS,afebrile on RA. Pt reports pain well controlled with ibuprofen, tylenol and oxycodone at 4/10. Dressing to LLE C/D/I, normal sensation, +CMS to LLE. Ortho, PT/OT clearing patient today for discharge home with . She verbalizes understanding of discharge plan, medications, site care, worsening of symptoms, and follow up appointments. COMPRESSOR STATION ENGINEER escorted patient via w/ch to private vehicle with her cane,all of belongings with , and prescriptions.
--- NOTE | 2020-12-03 15:45 | CM.IDA ---
Initial DCP Assessment Note Pt is an 80 yo female, resident of [place], now POD#1 from [facility] left knee by Dr Vann PCP: Arnulfo Oh Payer: PORFIR[employer]/GORDON Hoffman Reviewed chart, pt discussed in multidisciplinary rounds this morning. Therapy has cleared pt for return home w/family to assist and pt has planned for home, DC order from Ortho has already been initiated this morning. No needs expected from DC planning team although will remain available in case this changes today. RAFAEL Niño
== END 2020-12-03 11:30 | disposition home or self-care (01) ==
LOC: OR 07:32 → AC 07:35
PROVIDERS: Admitting Provider Anesthesiology; PCP Family Medicine; Referring Provider Orthopaedic Surgery Adult Reconstructive Orthopaedic Surgery; Visit Provider Orthopaedic Surgery Adult Reconstructive Orthopaedic Surgery
PROC: 0SRD0JZ Replacement of Left Knee Joint with Synthetic Substitute, Open Approach (ICD-10-PCS; CPT 27447; principal; 2020-12-02 08:45)
DX: M17.12 Unilateral primary osteoarthritis, left knee (principal); M25.762 Osteophyte, left knee; M65.88 Other synovitis and tenosynovitis, other site; K21.9 Gastro-esophageal reflux disease without esophagitis; E78.5 Hyperlipidemia, unspecified; F41.9 Anxiety disorder, unspecified; N39.3 Stress incontinence (female) (male); I10 Essential (primary) hypertension
CPT/HCPCS: 27447; 36415; 73560; 85014; 85018; 97110; 97116; 97162; 97530; C1776; J0690; J1100; J1885; J2270; J2405; J2704; J3010